=== PATIENT | male | born 1990 | race Two or more races ===

== ENCOUNTER 2017-12-15 09:14 | Emergency (ER) | payer OTHER ==
[~2017-12-15] VITALS: Ht 162.6 cm; Wt 72.1 kg
--- NOTE | 2017-12-15 09:15 | NUR ---
BIBRA 89 C/O DRUG OVERDOSE, TOOK HEROIN X 30 MINUTES AGO. A/OX 4, BREATHING EVEN AND UNLABORED. NO SOB, NAD, VITALS STABLE. SAFETY AND COMFORT MEASURES IN PLACE. AWAITING MD ORDERS .
[2017-12-15 10:42] VITALS: BP 138/91
--- NOTE | 2017-12-15 10:44 | NUR ---
Patient discharged to home in stable condition. Written and verbal after care instructions given. Patient verbalizes understanding of instruction.
== END 2017-12-15 10:43 | disposition home or self-care (01) ==
LOC: ER 09:16
DX: T40.1X1A Poisoning by heroin, accidental (unintentional), initial encounter (principal); T42.4X1A Poisoning by benzodiazepines, accidental (unintentional), initial encounter; Y92.89 Other specified places as the place of occurrence of the external cause
CPT/HCPCS: 71045; 93005; 99284; A4606; Z7610

== ENCOUNTER 2018-10-25 02:02 | Emergency (ER) | payer OTHER ==
[~2018-10-25] VITALS: Ht 172.7 cm; Wt 77.1 kg
--- NOTE | 2018-10-25 02:10 | NUR ---
PT BIBRA, PT STATES HE WAS AT A [facility] EARLIER LAST NIGHT. +ETOH, +CANNABIS. PT AAOX4. RESPIRATIONS EVEN AND UNLABORED. SKIN INTACT. NO ACUTE DISTRESS NOTED AT THIS TIME. WILL CONTINUE TO MONITOR
--- NOTE | 2018-10-25 04:27 | NUR ---
PT AAOX4. ABLE TO AMBULATE STEADY GAIT. INSTRUCTED NOT TO DRIVE, PICKED UP BY FRIEND. Patient discharged to home in stable condition. Written and verbal after care instructions given. Patient verbalizes understanding of instruction.
[2018-10-25 04:28] VITALS: BP 116/79
== END 2018-10-25 04:29 | disposition home or self-care (01) ==
LOC: ER 02:10
DX: F10.129 Alcohol abuse with intoxication, unspecified (principal); Z85.47 Personal history of malignant neoplasm of testis; Y90.9 Presence of alcohol in blood, level not specified
CPT/HCPCS: 82962-TC